=== PATIENT | female | born 1955 | race Caucasian/White ===

== ENCOUNTER 2023-06-08 07:35 | Day surgery (SDC) | payer MEDICARE, BC ==
[~2023-06-08] VITALS: Ht 152.4 cm; Wt 59.0 kg
[~2023-06-08 07:35] MED LIST: ESTR1DIS TD; IPRIH IN; TEST1INJ15 IM; THYR90TA PO; TRAZ-228 PO
[2023-06-08] MEDS ORDERED: ceFAZolin 2 GM/D5W50ml 50 ML IV ONE (07:55)
[2023-06-08] MEDS ORDERED: PROPOFOL 10 MG/ML 20 ML IV ONE (08:13)
[2023-06-08] MEDS ORDERED: ONDANSETRON HCL 4 MG/2 ML VIAL ONE (08:13)
[2023-06-08] MEDS ORDERED: ROCURONIUM 10MG/ML 10ML VIAL IV ONE (08:13)
[2023-06-08] MEDS ORDERED: DexAMETHasone SOD PHOS 10MG/1ML VIAL INJ ONE (08:13)
[2023-06-08] MEDS ORDERED: GLYCOPYRROLATE 0.2 MG/ML 1ML VIAL ONE (08:13)
[2023-06-08] MEDS ORDERED: LIDOCAINE 2% (LOCAL ANESTH.) PF 5ml SDV ONE (08:13)
[2023-06-08] MEDS ORDERED: KETOROLAC TROMETH 30 MG/ML 1ML VIAL ONE (08:14)
[2023-06-08] MEDS ORDERED: fentaNYL CITRATE 100 MCG/2 ML VL ONE (08:14)
[2023-06-08] MEDS ORDERED: LIDOCAINE 1% INJ PF 5ML AMP ONE (08:14)
[2023-06-08] MEDS ORDERED: KETAMINE 50mg/ML 1ml syringe ONE (08:14)
[2023-06-08] MEDS ORDERED: SUGAMMADEX 200mg/2ml Vial (100MG/ML) IV ONE (08:15)
[2023-06-08] MEDS ORDERED: ACETAMINOPHEN IV 100 ML IV ONE (08:37)
[2023-06-08] MEDS ORDERED: GABAPENTIN 400 MG CAP ONE (09:04)
[2023-06-08] MEDS ORDERED: CELECOXIB 100 MG CAP ONE (09:04)
[2023-06-08] MEDS ORDERED: GABAPENTIN 400 MG CAP PO ONE (09:15)
[2023-06-08] MEDS ORDERED: CELECOXIB 100 MG CAP PO ONE (09:15)
[2023-06-08] MEDS ORDERED: ACETAMINOPHEN IV 1000 MG/100ML (10MG/ML) IV ONE (09:15)
[2023-06-08] MEDS ORDERED: PHENYLEPHRINE HCL 10 MG/ML VL ONE (09:53)
[2023-06-08] MEDS ORDERED: SODIUM CHLORIDE LOCK 10 ML ONE (09:53)
[2023-06-08] MEDS: EPINEPHrine HCL 1 MG/1 ML AMP ONE (10:30)
[2023-06-08 11:39] VITALS: TEMP 97.3; O2SAT 100
[2023-06-08] MEDS ORDERED: ePHEDrine SULFATE 50 MG/ML AMP IV PRN (12:00)
[2023-06-08] MEDS ORDERED: oxyCODONE HCL 5MG TAB PO PRN (12:00)
[2023-06-08] MEDS ORDERED: NALOXONE HCL 0.4 MG/ML VIAL IV PRN (12:00)
[2023-06-08] MEDS ORDERED: ONDANSETRON HCL 4 MG/2 ML VIAL IV PRN (12:00)
[2023-06-08] MEDS ORDERED: FLUMAZENIL 0.1 MG/ML INJ 10ML MDV IV PRN (12:00)
[2023-06-08] MEDS ORDERED: HYDROmorphone HCL 2 MG/ML VL/or syr IV PRN (12:00)
[2023-06-08] MEDS ORDERED: hydrALAZINE HCL 20 MG/ML VL IV PRN (12:00)
[2023-06-08] MEDS ORDERED: LABETALOL HCL 5 MG/ML 4ML SYRINGE IV PRN (12:00)
[2023-06-08] MEDS ORDERED: fentaNYL CITRATE 100 MCG/2 ML VL IV PRN (12:00)
[2023-06-08 12:30] VITALS: BP 136/68; PULSE 79; RESP 11; O2SAT 97
== END 2023-06-08 12:45 | disposition home or self-care (01) ==
LOC: SUR 07:35
PROVIDERS: ATTEND Orthopaedic Surgery Sports Medicine
DX: M75.111 Incomplete rotator cuff tear or rupture of right shoulder, not specified as traumatic (principal); S46.211A Strain of muscle, fascia and tendon of other parts of biceps, right arm, initial encounter; S43.491A Other sprain of right shoulder joint, initial encounter; M65.811 Other synovitis and tenosynovitis, right shoulder; E03.9 Hypothyroidism, unspecified; Z90.710 Acquired absence of both cervix and uterus; Z79.890 Hormone replacement therapy; Z79.899 Other long term (current) drug therapy; Z98.890 Other specified postprocedural states; X58.XXXA Exposure to other specified factors, initial encounter; Y93.89 Activity, other specified; Y92.89 Other specified places as the place of occurrence of the external cause; Y99.8 Other external cause status
CPT/HCPCS: 29826; 29827; 29828; C1713; J0131; J0171; J0690; J1100; J1885; J2001; J2371; J2405; J2704; A4565